=== PATIENT | male | born 1965 | race American Indian/Alaskan Native ===

== ENCOUNTER 2018-03-06 18:11 | Emergency (ER) | payer OTHER ==
[2018-03-07 00:21] LABS: Basophils % (Auto) 0.3 % (0.0-1.8); Eosinophils % (Auto) 0.2 % (0.0-4.3); Hematocrit 25.3 % (35.5-45.6); Hemoglobin 8.1 gm/dl (11.8-15.2); Lymphocytes # (Auto) 1.3 K/mm3 (1.2-5.4); Lymphocytes % (Auto) 29.4 % (13.4-35.0); Mean Corpuscular HGB Conc 32 % (32-34); Mean Corpuscular Volume 72 fl (84-94); Monocytes # (Auto) 0.5 K/mm3 (0.0-0.8); Platelet Count 161 K/mm3 (140-440); Red Blood Count 3.53 M/mm3 (3.65-5.03); Red Cell Distribution Width 17.3 % (13.2-15.2)
[2018-03-07 00:24] LABS: Mean Corpuscular Hemoglobin 23 pg (28-32)
[2018-03-07 00:24] LABS: Bilirubin,Urine NEG (Negative); Blood,Urine NEG (Negative); Color,Urine Yellow (Yellow); Mucus,Urine FEW /HPF; Protein,Urine <15 mg/dL mg/dL (Negative); Urobilinogen,Urine < 2.0 mg/dL (<2.0)
[2018-03-07 00:30] LABS: Alanine Aminotransferase 14 units/L (7-56); Albumin 3.6 g/dL (3.9-5); BUN/Creatinine Ratio 29; Blood Urea Nitrogen 29 mg/dL (9-20); Calcium 9.1 mg/dL (8.4-10.2); Hemolysis Index 9
--- NOTE | 2018-03-07 00:37 | Emergency Department Report ---
ED Male HPI - General Chief complaint: Urogenital-Male Stated complaint: RASH ON PENIS Time Seen by Provider: 03/06/18 23:13 Source: patient Mode of arrival: Ambulatory Limitations: No Limitations - History of Present Illness Initial comments: 52-year-old -Greek male with a past medical history of diabetes and anxiety hypertension comes in stating that he has cramps in his legs or swelling in his ankle rash on his penis, primary care provider gave him cream and pills but it did not go away. Patient states that he is always fatigued. Patient reports that he has urinary urgency. Patient reports that his primary care doctor told him to come in when his insurance goes into effect. Patient reports that he was taken potassium along cream and another cream for yeast infection around his penis. -: week(s) (2) Consistency: intermittent - Related Data Home Medications Medication Instructions Recorded Confirmed Last Taken ALPRAZolam [Xanax] 1 mg PO TID PRN 03/14/14 03/06/18 1 Day Ago ~03/05/18 Lisinopril/Hydrochlorothiazide 1 tab PO QDAY 03/06/18 03/06/18 03/06/18 [Zestoretic 20-25 mg] Metoprolol [Lopressor TAB] 25 mg PO DAILY 03/06/18 03/06/18 03/06/18 Triamcinolone Acetonide 15 gm TP BID 03/06/18 03/06/18 03/06/18 traMADol [Ultram] 50 mg PO Q6HR PRN 03/06/18 03/06/18 03/06/18 Previous Rx's Medication Instructions Recorded Last Taken Type Fluconazole [Diflucan TAB] 200 mg PO QDAY #1 tablet 03/07/18 Unknown Rx Allergies Allergy/AdvReac Type Severity Reaction Status Date / Time Penicillins Allergy Shortness Verified 03/14/14 15:59 of Breath ED Review of Systems ROS: Stated complaint: RASH ON PENIS Other details as noted in HPI Constitutional: other (fatigue). denies: chills, fever Genitourinary: urgency Skin: rash (on penis) Neurological: denies: headache, weakness, paresthesias ED Past Medical Hx - Past Medical History Hx Hypertension: Yes Hx Diabetes: Yes Hx GERD: Yes Hx Psychiatric Treatment: Yes (anxiety) - Surgical History Additional Surgical History: right rotator cuff, gastric bypass 2000, tonsillectomy 1967, circumcision 1997 - Social History Smoking Status: Never Smoker - Medications Home Medications: Home Medications Medication Instructions Recorded Confirmed Last Taken Type ALPRAZolam [Xanax] 1 mg PO TID PRN 03/14/14 03/06/18 1 Day Ago History ~03/05/18 Lisinopril/Hydrochlorothiazide 1 tab PO QDAY 03/06/18 03/06/18 03/06/18 History [Zestoretic 20-25 mg] Metoprolol [Lopressor TAB] 25 mg PO DAILY 03/06/18 03/06/18 03/06/18 History Triamcinolone Acetonide 15 gm TP BID 03/06/18 03/06/18 03/06/18 History traMADol [Ultram] 50 mg PO Q6HR PRN 03/06/18 03/06/18 03/06/18 History Fluconazole [Diflucan TAB] 200 mg PO QDAY #1 tablet 03/07/18 Unknown Rx ED Physical Exam - General Limitations: No Limitations General appearance: alert, in no apparent distress - Head Head exam: Present: atraumatic, normocephalic - Eye Eye exam: Present: normal appearance - ENT ENT exam: Present: mucous membranes moist - Respiratory Respiratory exam: Present: normal lung sounds bilaterally. Absent: respiratory distress - Cardiovascular Cardiovascular Exam: Present: regular rate, normal rhythm. Absent: systolic murmur, diastolic murmur, rubs, gallop - GI/Abdominal GI/Abdominal exam: Present: soft, normal bowel sounds - Rectal Rectal exam: Present: heme (+) stool - exam: Present: circumcision - Extremities Exam Extremities exam: Present: normal inspection, full ROM - Back Exam Back exam: Present: normal inspection, full ROM - Neurological Exam Neurological exam: Present: alert, oriented X3 - Psychiatric Psychiatric exam: Present: normal affect, normal mood - Skin Skin exam: Present: warm, dry, intact, normal color. Absent: rash ED Course Vital Signs 03/06/18 18:21 Temperature 98.9 F Pulse Rate 100 H Respiratory 16 Rate Blood Pressure 118/69 O2 Sat by Pulse 99 Oximetry ED Medical Decision Making - Medical Decision Making Patient has been evaluated by this provider in fast track. H&H 8.1 and 25 we will refer her to gastroenterology for colonoscopy Guaiac stool positive we will refer to Gastro Balanitis will treat with Diflucan 200 mg by mouth 1 Discussed with patient he is anemic and this could be one reason why he is fatigued. Discussed with patient he needs to increase his iron rich diet such as liver.Alfonso Simental Patient verbalized understanding. Critical care attestation.: If time is entered above; I have spent that time in minutes in the direct care of this critically ill patient, excluding procedure time. ED Disposition Clinical Impression: Candidal balanitis, Guaiac positive stools Anemia Qualifiers: Anemia type: iron deficiency Iron deficiency anemia type: chronic blood loss Qualified Code(s): D50.0 - Iron deficiency anemia secondary to blood loss ( chronic) Disposition: - TO HOME OR SELFCARE Is pt being admited?: No Does the pt Need Aspirin: No Condition: Stable Instructions: Anemia (ED), Iron Rich Diet (ED), Balanitis (ED) Additional Instructions: Please take the Diflucan as prescribed. It very important for you to follow up with gastroenterology and I have listed one below. It is very important for you to follow with Dr. Chris Lyons primary care provider. Please incorporate iron which foods. If her symptoms gets worse please return back to the emergency room for further evaluation. Prescriptions: Fluconazole [Diflucan TAB] 200 mg PO QDAY #1 tablet Referrals: CHRIS LYONS MD [Primary Care Provider] - 3-5 Days [facility] [Provider Group] - 3-5 Days Forms: Work/School Release Form(ED)
[2018-03-07 01:47] VITALS: BP 116/70
== END 2018-03-07 01:47 | disposition home or self-care (01) ==
LOC: ED 18:11
DX: B37.42 Candidal balanitis (principal); D50.0 Iron deficiency anemia secondary to blood loss (chronic); R19.5 Other fecal abnormalities; R39.15 Urgency of urination; K21.9 Gastro-esophageal reflux disease without esophagitis; F41.9 Anxiety disorder, unspecified; I10 Essential (primary) hypertension; E11.9 Type 2 diabetes mellitus without complications; Z90.89 Acquired absence of other organs
CPT/HCPCS: 36415; 80053; 81001; 82271; 82962; 85025; 87086; 99283

== ENCOUNTER 2020-08-10 01:04 | Emergency (ER) | payer OTHER ==
[2020-08-10] MEDS ORDERED: ONDANSETRON 4 MG/2 ML INJ IV ONE (02:24)
[2020-08-10] MEDS ORDERED: SODIUM CHLORIDE 0.9% 1000 ML 1,000 ML IV ONE (02:24)
[2020-08-10] MEDS ORDERED: HYDROmorphone 1 MG/1 ML INJ IV ONE (02:24)
--- NOTE | 2020-08-10 02:26 | Emergency Department Report ---
ED Abdominal Pain HPI - General Chief Complaint: Abdominal Pain Stated Complaint: DIARRHEA, AND DIZZINESS, & INCONTINENCE PUI?: No Time Seen by Provider: 08/10/20 02:23 Source: patient Mode of arrival: Ambulatory Limitations: No Limitations - History of Present Illness Initial Comments: Patient is a 55-year-old male who presents emergency room with complaints of abdominal pain and nausea and vomiting and diarrhea x3 days. Patient dates her symptoms are worsening. Patient states his pain is a 10 out of 10. Patient states is a generalized abdominal pain. Patient states the pain is better with rest and worse with movement. Patient states the pain is nonradiating. Patient denies chest pain. Patient denies shortness of breath. Patient denies blood in the stool. Patient denies blood in his vomitus. Patient denies shortness of breath. Patient denies recent travel. Patient denies recent international travel. Saleem menjivar denies exposure to the novel coronavirus. Patient denies sick contacts. Patient denies fever and chills. Patient denies cough. Patient denies diarrhea. Patient denies coming in contact with anybody with symptoms of the novel coronavirus. MD Complaint: abdominal pain -: Sudden Location: diffuse Radiation: none Migration to: no migration Severity: severe Severity scale (0 -10): 10 Quality: stabbing Consistency: constant Improves With: rest Worsens With: vomiting, movement Associated Symptoms: nausea, vomiting, diarrhea. denies: fever, chills, constipation, dysuria, hematemesis, hematochezia, melena, hematuria, anorexia, syncope - Related Data Home Medications Medication Instructions Recorded Confirmed Last Taken ALPRAZolam [Xanax] 1 mg PO TID PRN 03/14/14 03/06/18 1 Day Ago ~03/05/18 Lisinopril/Hydrochlorothiazide 1 tab PO QDAY 03/06/18 03/06/18 03/06/18 [Zestoretic 20-25 mg] Metoprolol [Lopressor TAB] 25 mg PO DAILY 03/06/18 03/06/18 03/06/18 Triamcinolone Acetonide 15 gm TP BID 03/06/18 03/06/18 03/06/18 traMADoL [Ultram] 50 mg PO Q6HR PRN 03/06/18 03/06/18 03/06/18 Previous Rx's Medication Instructions Recorded Last Taken Type Fluconazole [Diflucan TAB] 200 mg PO QDAY #1 tablet 03/07/18 Unknown Rx Ciprofloxacin HCl [Ciprofloxacin 500 mg PO Q12HR 10 Days #20 tab 08/10/20 Unknown Rx TAB] Ondansetron [Zofran Odt] 4 mg PO Q6HR PRN #15 tab.rapdis 08/10/20 Unknown Rx Allergies Allergy/AdvReac Type Severity Reaction Status Date / Time Penicillins Allergy Shortness Verified 03/14/14 15:59 of Breath ED Review of Systems ROS: Stated complaint: DIARRHEA, AND DIZZINESS, & INCONTINENCE Other details as noted in HPI Constitutional: denies: chills, fever Eyes: denies: eye pain, eye discharge, vision change ENT: denies: ear pain, throat pain Respiratory: denies: cough, shortness of breath, wheezing Cardiovascular: denies: chest pain, palpitations Endocrine: no symptoms reported Gastrointestinal: abdominal pain, nausea, vomiting, diarrhea. denies: constipation, hematemesis, melena, hematochezia Genitourinary: denies: urgency, dysuria Musculoskeletal: denies: back pain, joint swelling, arthralgia Skin: denies: rash, lesions Neurological: denies: headache, weakness, paresthesias Psychiatric: denies: anxiety, depression Hematological/Lymphatic: denies: easy bleeding, easy bruising ED Past Medical Hx - Past Medical History Previous Medical History?: Yes Hx Hypertension: Yes Hx Diabetes: Yes Hx GERD: Yes Hx Psychiatric Treatment: Yes (anxiety) - Surgical History Past Surgical History?: Yes Additional Surgical History: right rotator cuff, gastric bypass 2000, tonsillectomy 1967, circumcision 1997 - Family History Family history: no significant - Social History Smoking Status: Never Smoker Substance Use Type: Alcohol - Medications Home Medications: Home Medications Medication Instructions Recorded Confirmed Last Taken Type ALPRAZolam [Xanax] 1 mg PO TID PRN 03/14/14 03/06/18 1 Day Ago History ~03/05/18 Lisinopril/Hydrochlorothiazide 1 tab PO QDAY 03/06/18 03/06/18 03/06/18 History [Zestoretic 20-25 mg] Metoprolol [Lopressor TAB] 25 mg PO DAILY 03/06/18 03/06/18 03/06/18 History Triamcinolone Acetonide 15 gm TP BID 03/06/18 03/06/18 03/06/18 History traMADoL [Ultram] 50 mg PO Q6HR PRN 03/06/18 03/06/18 03/06/18 History Fluconazole [Diflucan TAB] 200 mg PO QDAY #1 tablet 03/07/18 Unknown Rx Ciprofloxacin HCl [Ciprofloxacin 500 mg PO Q12HR 10 Days #20 tab 08/10/20 Unknown Rx TAB] Ondansetron [Zofran Odt] 4 mg PO Q6HR PRN #15 tab.rapdis 08/10/20 Unknown Rx ED Physical Exam - General Limitations: No Limitations General appearance: alert, in no apparent distress - Head Head exam: Present: atraumatic, normocephalic - Eye Eye exam: Present: normal appearance - ENT ENT exam: Present: mucous membranes dry - Neck Neck exam: Present: normal inspection - Respiratory Respiratory exam: Present: normal lung sounds bilaterally. Absent: respiratory distress, wheezes, rales - Cardiovascular Cardiovascular Exam: Present: regular rate, normal rhythm. Absent: systolic murmur, diastolic murmur, rubs, gallop - GI/Abdominal GI/Abdominal exam: Present: soft, tenderness (Generalized tenderness), normal bowel sounds - Rectal Rectal exam: Present: deferred - Extremities Exam Extremities exam: Present: normal inspection - Back Exam Back exam: Present: normal inspection - Neurological Exam Neurological exam: Present: alert, oriented X3 - Psychiatric Psychiatric exam: Present: normal affect, normal mood - Skin Skin exam: Present: warm, dry, intact, normal color. Absent: rash ED Course Vital Signs 08/10/20 08/10/20 08/10/20 01:12 02:48 03:01 Temperature 97.7 F Pulse Rate 114 H Respiratory 20 Rate Blood Pressure 113/64 138/73 O2 Sat by Pulse 100 87 97 Oximetry 08/10/20 08/10/20 08/10/20 03:15 03:30 03:45 Temperature Pulse Rate Respiratory Rate Blood Pressure 138/73 141/76 141/76 O2 Sat by Pulse 94 95 97 Oximetry - Reevaluation(s) Reevaluation #1: Patient states he is feeling much better. Patient denies nausea and vomiting. 08/10/20 03:35 Reevaluation #2: Patient states he is unable to give us urine sample because he used the bathroom already. Patient refused to give a urine sample. I discussed all results and clinical findings with patient. I discussed plan of care with patient. Patient agrees with plan of care. Patient is stable for discharge. Patient will be discharged home. Patient given discharge instructions. Patient voiced understanding of discharge instructions. 08/10/20 05:35 ED Medical Decision Making - Lab Data Result diagrams: 08/10/20 02:13 08/10/20 Unknown - Radiology Data Radiology results: report reviewed CT ABDOMEN AND PELVIS WITH IV CONTRAST INDICATION: Pt complains of "Generalized" abd pain with N/V/D x 3 days.. COMPARISON: None available. TECHNIQUE: Axial CT images were obtained through the abdomen and pelvis after IV contrast. All CT scans at this location are performed using CT dose reduction for ALARA by means of automated exposure control. FINDINGS -- ABDOMEN: Lung Bases: No acute abnormality. Liver: Normal. Gallbladder: Normal. Bile Ducts: Normal. Pancreas: Normal. Spleen: Normal. Adrenals: Normal. Right Kidney and Proximal Ureter: Multiple cysts. Left Kidney and Proximal Ureter: Several small cysts.. Stomach and Bowel: Gastric bypass.. Lymph Nodes: No significant adenopathy. Aorta: No significant abnormality. IVC: Normal. Additional Findings: Fat-containing ventral abdominal wall hernia within the upper abdomen.. FINDINGS -- PELVIS: Urinary Bladder and Distal Ureters: Urinary bladder wall is thickened.. Reproductive Organs: No acute abnormality. Appendix: Not well identified. Bowel: Fairly diffuse mucosal wall thickening t hroughout the colon.. Free Fluid: None. Lymph Nodes: No significant adenopathy. Additional Findings: None. Skeletal System: No acute abnormality. IMPRESSION: 1. Mild diffuse colitis. 2. Urinary bladder wall thickening is nonspecific and could be seen with cystitis. 3. Ventral abdominal wall hernia. 4. Multiple renal cysts noted bilaterally, as above. 5. No evidence of small bowel obstruction. - Medical Decision Making Patient is a 55-year-old male that presents emergency room with complaints of nausea, vomiting, diarrhea, abdominal pain. Patient abdominal pain is generalized. Patient labs were done and are essentially unremarkable except for mild dehydration. Patient's baseline creatinine, per the patient, is 1.2. Patient unable to leave a urine sample. Patient refused to give a urine sample and states he is ready to go home. Patient went to the bathroom multiple times and did not feel a urine cup for us. Patient had a CT done which showed acute cystitis and colitis. No other acute findings noted on CT scan.. Patient was given fluids, antiemetics and pain medications and patient responded well. Patient tolerated p.o. intake. Patient ambulatory without difficulty in ER. Patient is stable for discharge. Patient discharged home. - Differential Diagnosis Dehydration, nausea, vomiting, diarrhea, gastroenteritis, UTI, abd PAIN Critical care attestation.: If time is entered above; I have spent that time in minutes in the direct care of this critically ill patient, excluding procedure time. ED Disposition Clinical Impression: Dehydration, Renal insufficiency, Gastroenteritis UTI (urinary tract infection) Qualifiers: Urinary tract infection type: acute cystitis Hematuria presence: without hematuria Qualified Code(s): N30.00 - Acute cystitis without hematuria Abdominal pain Qualifiers: Abdominal location: generalized Qualified Code(s): R10.84 - Generalized abdominal pain Nausea & vomiting Qualifiers: Vomiting type: unspecified Vomiting Intractability: non-intractable Qualified Code(s): R11.2 - Nausea with vomiting, unspecified Diarrhea Qualifiers: Diarrhea type: unspecified type Qualified Code(s): R19.7 - Diarrhea, unspecified Disposition: DC-01 TO HOME OR SELFCARE Is pt being admited?: No Does the pt Need Aspirin: No Condition: Stable Instructions: Nausea and Vomiting, Adult, [id number], Preventing Chronic Kidney Disease, Food Choices to Help Relieve Diarrhea, Adult, Urinary Tract Infection, Adult, [id number], Viral Gastroenteritis, Adult, [id number] Additional Instructions: Patient to follow-up with primary care in 2 to 3 days. Patient to follow-up with urologist in 2 to 3 days. Patient to rest. Patient to increase water. Patient to eat a brat diet. Patient to avoid ibuprofen. Patient to take Tylenol as needed for pain. Patient to take meds as directed. Patient to return to the ER if condition worsens, changes or new symptoms arise. Prescriptions: Ciprofloxacin HCl [Ciprofloxacin TAB] 500 mg PO Q12HR 10 Days #20 tab Ondansetron [Zofran Odt] 4 mg PO Q6HR PRN #15 tab.rapdis PRN Reason: Nausea And Vomiting Referrals: LA NENA SOLIMANELKHARTGEMMA MD [Primary Care Provider] - 2-3 Days JANELLE GALLARDO MD [Staff Physician] - 2-3 Days Time of Disposition: 05:39
[2020-08-10 02:33] LABS: Hematocrit 34.4 % (35.5-45.6); Hemoglobin 11.8 gm/dl (11.8-15.2); Mean Corpuscular HGB Conc 34 % (32-34); Mean Corpuscular Volume 74 fl (84-94); Platelet Count 152 K/mm3 (140-440); Red Blood Count 4.64 M/mm3 (3.65-5.03); Red Cell Distribution Width 16.9 % (13.2-15.2)
[2020-08-10 03:02] LABS: Albumin 3.6 g/dL (3.9-5); Calcium 9.6 mg/dL (8.4-10.2)
[2020-08-10 03:55] VITALS: BP 141/76
--- NOTE | 2020-08-10 04:40 | Cat Scan Report ---
CT ABDOMEN AND PELVIS WITH IV CONTRAST INDICATION: Pt complains of "Generalized" abd pain with N/V/D x 3 days.. COMPARISON: None available. TECHNIQUE: Axial CT images were obtained through the abdomen and pelvis after IV contrast. All CT scans at this location are performed using CT dose reduction for ALARA by means of automated exposure control. FINDINGS -- ABDOMEN: Lung Bases: No acute abnormality. Liver: Normal. Gallbladder: Normal. Bile Ducts: Normal. Pancreas: Normal. Spleen: Normal. Adrenals: Normal. Right Kidney and Proximal Ureter: Multiple cysts. Left Kidney and Proximal Ureter: Several small cysts.. Stomach and Bowel: Gastric bypass.. Lymph Nodes: No significant adenopathy. Aorta: No significant abnormality. IVC: Normal. Additional Findings: Fat-containing ventral abdominal wall hernia within the upper abdomen.. FINDINGS -- PELVIS: Urinary Bladder and Distal Ureters: Urinary bladder wall is thickened.. Reproductive Organs: No acute abnormality. Appendix: Not well identified. Bowel: Fairly diffuse mucosal wall thickening throughout the colon.. Free Fluid: None. Lymph Nodes: No significant adenopathy. Additional Findings: None. Skeletal System: No acute abnormality. IMPRESSION: 1. Mild diffuse colitis. 2. Urinary bladder wall thickening is nonspecific and could be seen with cystitis. 3. Ventral abdominal wall hernia. 4. Multiple renal cysts noted bilaterally, as above. 5. No evidence of small bowel obstruction. Signer Name: Pedro Ortiz MD Signed: 08/10/2020 4:36 AM Workstation Name: [id number]
[2020-08-10 05:07] LABS: Anisocytosis Few; Basophils % (Manual) 0 % (0.0-1.8); Ovalocytes Few; Total Cells Counted 100
[2020-08-10 05:08] LABS: Burr Cells Few; Platelet Estimate Consistent w Auto
== END 2020-08-10 05:53 | disposition home or self-care (01) ==
LOC: ED 01:04
DX: N39.0 Urinary tract infection, site not specified (principal); N28.9 Disorder of kidney and ureter, unspecified; K52.9 Noninfective gastroenteritis and colitis, unspecified; E86.0 Dehydration; R11.2 Nausea with vomiting, unspecified; R10.84 Generalized abdominal pain; I10 Essential (primary) hypertension; E11.9 Type 2 diabetes mellitus without complications; K21.9 Gastro-esophageal reflux disease without esophagitis; F41.9 Anxiety disorder, unspecified; Z98.890 Other specified postprocedural states; Z79.899 Other long term (current) drug therapy; Z88.0 Allergy status to penicillin
CPT/HCPCS: 36415; 74177; 80053; 85007; 85025; 96361; 96374; 96375; 99284; J1170; J2405; J7030; Q9967